=== PATIENT | male | born 1965 | race American Indian/Alaskan Native ===

== ENCOUNTER 2017-09-20 14:13 | Day surgery (SDC) | payer OTHER, MEDICAID ==
[~2017-09-20 14:13] MED LIST: Bupivacaine HCl 0.25% PF (10 ml) Inj ONE; Iohexol 240 (50 ml) ONE; Lactated Ringer's 1,000 ML IV ONE; Lidocaine 1% MPF (30 ml) Inj ONE; Lidocaine Hydrochloride 10 ML INJ ONE
[2017-09-20] MEDS: Bupivacaine HCl 0.25% PF (10 ml) Inj ONE ×2 (14:20→15:41)
[2017-09-20] MEDS ORDERED: Lidocaine 1% Inj (20ml) INFIL ONE (15:08)
[2017-09-20] MEDS ORDERED: Propofol 10 mg/ml Inj (20 ML) ONE (15:09)
[2017-09-20] MEDS ORDERED: Iohexol 240 (50 ml) IVP ONE (15:09)
[2017-09-20] MEDS ORDERED: Sodium Chloride 0.9% 500 ML IV ONE (15:09)
[2017-09-20] MEDS ORDERED: Bupivacaine HCl 0.25% PF (10 ml) Inj EPI ONE (15:09)
[2017-09-20] MEDS ORDERED: Midazolam 2 MG/2 ML VIAL ONE (15:15)
[2017-09-20] MEDS: Iohexol 240 (50 ml) ONE ×2 (15:19→15:41)
[2017-09-20 16:31] VITALS: BP 138/80; PULSE 82; RESP 18; TEMP 97; O2SAT 100
--- NOTE | 2017-09-21 03:56 | OP ---
DATE: PROCEDURE DATE: 09/20/2017 SURGEON: MARIVEL PIEDRA MD OPERATIVE PROCEDURE: Lumbosacral epidural steroid injection, transforaminal approach with fluoroscopic guidance. INJECTATE: A total of 5.0 cc; consisting of 2.5 cc of Kenalog (40 mg/cc), with the remainder of saline. APPROACH: Transforaminal approach. FINDINGS: Flow of contrast was excellent along the left L5 and S1 nerve roots and into the epidural space. PROCEDURE: The patient was prepped and draped in a sterile fashion in the prone position after informed consent was signed and all the patient's questions were answered including the risks, benefits, alternative treatment options, and prognosis. The risks include but are not limited to infection, allergic reaction, increased pain, lack of therapeutic benefit, steroid reaction, nerve damage, paralysis, stroke, epidural hematoma, syncope, headache, respiratory or cardiac arrest, and scar formation. The C-arm was positioned so that an oblique view of the foramen as noted above was visualized. The soft tissues overlying this structure were infiltrated with 2-3 cc of 1% lidocaine without epinephrine. A 22-gauge spinal needle was inserted toward the target using a "trajectory" view along the fluoroscope beam. Under AP and lateral visualization, the needle was advanced so it did not puncture dura. Biplanar projections were used to confirm position. Aspiration was confirmed to be negative for CSF and/or blood. A 1 to 2 cc volume of Omnipaque-300 was injected and flow of contrast was noted at each level. Radiographs were obtained for documentation purposes. After attaining flow of contrast documented above, a 1 cc test dose of 1% lidocaine was injected into each respective transforaminal space. The patient was observed for 90 seconds post injection. After no sensory deficits were reported, and normal lower extremity motor function was noted, the above injectate was administered so that equal amounts of the injectate were placed at each foramen into the transforaminal epidural space. The patient tolerated the procedure well and was discharged after an appropriate period of observation. If there are any complications, the patient was instructed to call us. The patient is to follow up with the requesting physician within one to two weeks. Marivel Piedra MD
--- NOTE | 2017-09-21 09:53 | RAD ---
PROCEDURE: Intraoperative Fluoroscopy. HISTORY: LUMBAR RADICULOPATHY FINDINGS: Fluoroscopic assistance was provided for L5-S1 epidural spinal injection. Please refer to the operative report from MARIVEL Denise, , MD KRISTIN.
== END 2017-09-20 17:29 | disposition home or self-care (01) ==
LOC: C.SDS 14:13
PROVIDERS: ATTEND Neuromusculoskeletal Medicine, Sports Medicine
DX: M51.27 Other intervertebral disc displacement, lumbosacral region (principal); M54.17 Radiculopathy, lumbosacral region
CPT/HCPCS: 64483; J1100; J2001; J2250; J2704; Q9966

== ENCOUNTER 2017-10-28 13:30 | Inpatient (IN) | payer MEDICAID, OTHER ==
[2017-10-28 16:37] LABS: BASO # 0.1 K/uL (0.0-0.2); BASO % 1.4 % (0.0-2.0); EOS # 0.1 K/uL (0.0-0.7); EOS % 1.9 % (0.0-4.0); HEMOGLOBIN 10.9 g/dL (12.0-18.0); LYMPH # 2.2 K/uL (1.0-4.3); LYMPH % 33.2 % (20.0-40.0); MEAN CORPUSCULAR HEMOGLOBIN 27.2 pg (27.0-31.0); MEAN PLATELET VOLUME 7.4 fL (7.2-11.7); MONO # 0.8 K/uL (0.0-0.8); MONO % 12.4 % (0.0-10.0); NEUT # 3.4 K/uL (1.8-7.0); NEUT % 51.1 % (50.0-75.0); NRBC % 0.1 % (0.0-2.0); RBC 3.99 Mil/uL (4.40-5.90); RED CELL DISTRIBUTION WIDTH 15.8 % (11.5-14.5); WHITE BLOOD COUNT 6.7 K/uL (4.8-10.8)
--- NOTE | 2017-10-28 16:45 | RAD ---
PROCEDURE: CHEST RADIOGRAPH, 1 VIEW HISTORY: SOB COMPARISON: None available. FINDINGS: LUNGS: Evaluation of the left lung base limited due to the degree of cardiomegaly. PLEURA: No pneumothorax. Small bilateral pleural effusions cannot be excluded CARDIOVASCULAR: Marked cardiomegaly. Central pulmonary venous congestion OSSEOUS STRUCTURES: No significant abnormalities. VISUALIZED UPPER ABDOMEN: Normal. OTHER FINDINGS: None. IMPRESSION: Cardiomegaly with mild pulmonary venous congestion. . Small bilateral pleural effusions not excluded
[2017-10-28 16:52] LABS: ALBUMIN 3.3 g/dL (3.5-5.0); ALT/SGPT 46 U/L (21-72); AST/SGOT 39 U/L (17-59); BLOOD UREA NITROGEN 19 mg/dL (9-20); CALCIUM 8.7 mg/dl (8.6-10.4); GFR AFRICAN-AMERICAN > 60; GFR NON-AFRICAN AMERICAN > 60
[2017-10-28 17:02] LABS: B-TYPE NATRIURETIC PEPTIDE 1530 pg/mL (0-900)
--- NOTE | 2017-10-28 18:05 | C.PDOC ---
History Of Present Illness 52 y/o male presents to ED with complaints of increased leg swelling for 1 week. Patient reports he is non compliant with medications and admits to shortness of breath on exertion. Patient denies fever, cough, chest pain or any other complaints at this time. Chief Complaint (Nursing): Lower Extremity Problem/Injury History Per: Patient History/Exam Limitations: no limitations Onset/Duration Of Symptoms: Days Current Symptoms Are (Timing): Still Present Past Medical History Reviewed: Historical Data, Nursing Documentation, Vital Signs Vital Signs: Last Vital Signs Temp 98.2 F 10/28/17 18:29 Pulse 88 10/28/17 18:29 Resp 20 10/28/17 18:29 BP 138/82 10/28/17 18:29 Pulse Ox 100 10/28/17 18:29 - Medical History PMH: Back Problems, HTN Surgical History: No Surg Hx Family History: States: No Known Family Hx - Social History Hx Alcohol Use: No Hx Substance Use: No - Immunization History Hx Tetanus Toxoid Vaccination: No Hx Influenza Vaccination: No Hx Pneumococcal Vaccination: No Review Of Systems Constitutional: Negative for: Fever, Chills Cardiovascular: Negative for: Chest Pain Respiratory: Positive for: SOB with Excertion. Negative for: Cough Gastrointestinal: Negative for: Nausea, Vomiting Musculoskeletal: Positive for: Leg Pain (swelling) Physical Exam - Physical Exam Appears: Non-toxic, No Acute Distress Skin: Warm, Dry, No Rash Head: Atraumatic, Normacephalic Oral Mucosa: Moist Neck: Normal ROM, Supple Cardiovascular: Other (Displaced PMI ) Respiratory: Rales (at bases bilaterally), No Rhonchi, No Wheezing Gastrointestinal/Abdominal: Bowel Sounds, Soft, No Tenderness, No Guarding, No Rebound Extremity: No Deformity, Other (pitting edema bilaterally up to knees) Pulses: Left Dorsalis Pedis: Normal, Right Dorsalis Pedis: Normal Neurological/Psych: Oriented x3, Normal Speech, Normal Cognition, Normal Motor, Normal Sensation ED Course And Treatment - Laboratory Results Result Diagrams: 10/28/17 16:29 10/28/17 16:29 ECG: Interpreted By Me, Viewed By Me ECG Rhythm: Sinus Rhythm Rate From EC (BPM) O2 Sat by Pulse Oximetry: 98 (RA) Pulse Ox Interpretation: Normal Progress Note: Spoke to Dr. Castro instructed admission to Telemetry Disposition - Disposition Disposition Time: 17:00 Condition: FAIR - Clinical Impression Clinical Impression: CHF exacerbation - Scribe Statement The provider has reviewed the documentation as recorded by the Scribanurag Porter All medical record entries made by the Mirelaibe were at my direction and personally dictated by me. I have reviewed the chart and agree that the record accurately reflects my personal performance of the history, physical exam, medical decision making, and the department course for this patient. I have also personally directed, reviewed, and agree with the discharge instructions and disposition.
[2017-10-28] MEDS ORDERED: Potassium Chloride 20 mEq ER Tab PO ONE (18:25)
[2017-10-28] MEDS: Potassium Chloride 20 mEq ER Tab PO SCH (18:32)
[2017-10-28] MEDS: Metoprolol Succinate 100 mg XL Tab PO SCH (22:09)
[2017-10-29 09:22] LABS: BASO # 0.1 K/uL (0.0-0.2); BASO % 1.2 % (0.0-2.0); EOS # 0.1 K/uL (0.0-0.7); EOS % 1.4 % (0.0-4.0); HEMOGLOBIN 10.5 g/dL (12.0-18.0); LYMPH # 1.5 K/uL (1.0-4.3); LYMPH % 27.1 % (20.0-40.0); MEAN CELL VOLUME 85.5 fL (80.0-94.0); MEAN CORPUSCULAR HEMOGLOBIN 27.6 pg (27.0-31.0); MEAN CORPUSCULAR HGB CONC 32.3 g/dL (33.0-37.0); MEAN PLATELET VOLUME 7.9 fL (7.2-11.7); MONO # 0.6 K/uL (0.0-0.8); NEUT # 3.4 K/uL (1.8-7.0); NEUT % 60.3 % (50.0-75.0); NRBC % 0.1 % (0.0-2.0); RBC 3.8 Mil/uL (4.40-5.90); RED CELL DISTRIBUTION WIDTH 15.6 % (11.5-14.5); WHITE BLOOD COUNT 5.7 K/uL (4.8-10.8)
[2017-10-29 09:40] LABS: ALB/GLOB RATIO 1.1 (1.0-2.1); ALBUMIN 3.2 g/dL (3.5-5.0); ALT/SGPT 46 U/L (21-72); AST/SGOT 48 U/L (17-59); BLOOD UREA NITROGEN 17 mg/dL (9-20); CALCIUM 8.5 mg/dl (8.6-10.4); GFR AFRICAN-AMERICAN > 60; GFR NON-AFRICAN AMERICAN > 60
[2017-10-29] MEDS: GlipiZIDE 10 mg SR Tab PO SCH ×2 (10:40→17:17)
[2017-10-29] MEDS: Enoxaparin 40 mg Syringe SC SCH (10:40)
[2017-10-29] MEDS: Potassium Chloride 20 mEq ER Tab PO SCH (10:40)
[2017-10-29] MEDS: Metoprolol Succinate 100 mg XL Tab PO SCH (10:40)
[2017-10-29] MEDS: Aspirin 325 mg EC Tablets PO SCH (10:40)
--- NOTE | 2017-10-29 11:43 | CP.PCM.CON ---
<Jono Correa - Last Filed: 10/29/17 19:08> History of Present Illness - History of Present Illness History of Present Illness: PGY [address] Beatty's Cardiology service Consult: CHF exacerbation HPI Patient is a 52 year old male, with PMHx of HTN, CAD (with stent placement, CHF , T2DM, Lumbar radiculopathy, Gout, HLD presenting for increased leg swelling for approximately last 10 days. Admits sleeping either in recliner or with 2+ pillows. Denies dyspnea with exertion or chest pain. Patient denies fever, cough , chest pain or any other complaints at this time. PMHx: HTN, CAD (with stent placement - unknown type), CHF, T2DM, Lumbar radiculopathy, Gout, HLD PSHx: Stent placement (approx 3 yrs ago) SHx: Tobacco: 1/2 ppd x ~15 yrs; denies etoh or drugs Allergies: NKA Review of Systems - Constitutional Constitutional: absent: Chills, Fever - EENT Eyes: absent: Change in Vision - Cardiovascular Cardiovascular: Edema, Pedal Edema. absent: Chest Pain - Respiratory Respiratory: absent: Cough, Dyspnea, Dyspnea on Exertion - Gastrointestinal Gastrointestinal: absent: Abdominal Pain, Vomiting - Musculoskeletal Musculoskeletal: Numbness, Tingling (hx radiculopathy) - Neurological Neurological: Tingling - Endocrine Endocrine: absent: Palpitations Past Patient History - Past Medical History & Family History Past Medical History?: Yes - Past Social History Smoking Status: Heavy Smoker > 10 Cigarettes Daily - CARDIAC Hx Cardiac Disorders: Yes Hx Hypertension: Yes - PULMONARY Hx Respiratory Disorders: No - NEUROLOGICAL Hx Neurological Disorder: No - HEENT Hx HEENT Problems: No - RENAL Hx Chronic Kidney Disease: No - ENDOCRINE/METABOLIC Hx Endocrine Disorders: Yes Hx Diabetes Mellitus Type 2: Yes - HEMATOLOGICAL/ONCOLOGICAL Hx Blood Disorders: No - INTEGUMENTARY Hx Dermatological Problems: No - MUSCULOSKELETAL/RHEUMATOLOGICAL Hx Musculoskeletal Disorders: No Hx Falls: No - GASTROINTESTINAL Hx Gastrointestinal Disorders: No - GENITOURINARY/GYNECOLOGICAL Hx Genitourinary Disorders: No - PSYCHIATRIC Hx Psychophysiologic Disorder: No Hx Substance Use: No - SURGICAL HISTORY Hx Surgeries: No - ANESTHESIA Hx Anesthesia: No Meds Allergies/Adverse Reactions: Allergies Allergy/AdvReac Type Severity Reaction Status Date / Time No Known Allergies Allergy Verified 10/28/17 14:01 - Medications Medications: Current Medications Allopurinol (Zyloprim) 100 mg PO BID [facility] Last Admin: 10/29/17 10:40 Dose: 100 mg Amlodipine Besylate (Norvasc) 10 mg PO DAILY [facility] Last Admin: 10/29/17 10:40 Dose: 10 mg Aspirin (Ecotrin) 325 mg PO DAILY [facility] Last Admin: 10/29/17 10:40 Dose: 325 mg Clopidogrel Bisulfate (Plavix) 75 mg PO DAILY [facility] Last Admin: 10/29/17 10:40 Dose: 75 mg Enoxaparin Sodium (Lovenox) 40 mg SC DAILY [facility] Last Admin: 10/29/17 10:40 Dose: 40 mg Furosemide (Lasix) 40 mg IVP DAILY [facility] Last Admin: 10/29/17 10:41 Dose: 40 mg Glipizide (Glucotrol Xl) 10 mg PO BID [facility] Last Admin: 10/29/17 10:40 Dose: 10 mg Ibuprofen (Motrin Tab) 600 mg PO Q8H PRN PRN Reason: Pain, moderate (4-7) Losartan Potassium (Cozaar) 100 mg PO DAILY [facility] Last Admin: 10/29/17 10:40 Dose: 100 mg Metformin HCl (Glucophage) 1,000 mg PO BID [facility] Last Admin: 10/29/17 10:40 Dose: 1,000 mg Metoprolol Succinate (Toprol Xl) 100 mg PO DAILY [facility] Last Admin: 10/29/17 10:40 Dose: 100 mg Potassium Chloride (K-Dur 20 Meq Er Tab) 20 meq PO DAILY [facility] Last Admin: 10/29/17 10:40 Dose: 20 meq Rosuvastatin Calcium (Crestor) 20 mg PO [facility] Physical Exam - Additional Findings Additional findings: - Constitutional Appears: Non-toxic, No Acute Distress - Head Exam Head Exam: ATRAUMATIC - ENT Exam ENT Exam: Mucous Membranes Moist - Respiratory Exam Respiratory Exam: Wheezes (worse on expiration). absent: Accessory Muscle Use, Rales, Rhonchi, Respiratory Distress - Cardiovascular Exam Cardiovascular Exam: REGULAR RHYTHM, +S1, +S2. absent: Gallop, Rubs, Murmur - GI/Abdominal Exam GI & Abdominal Exam: Soft, Normal Bowel Sounds. absent: Distended, Firm, Guarding, Rigid, Tenderness, Organomegaly - Extremities Exam Extremities Exam: + Pedal Edema (worse on right), mild Tenderness - Neurological Exam Neurological Exam: Alert, Awake, Oriented x3 - Psychiatric Exam Psychiatric exam: Normal Affect, Normal Mood - Skin Skin Exam: Dry, Intact, Normal Color, Warm Results - Vital Signs Recent Vital Signs: Last Vital Signs Temp 98.4 F 10/29/17 07:15 Pulse 84 10/29/17 07:15 Resp 20 10/29/17 07:15 BP 125/84 10/29/17 10:41 Pulse Ox 96 10/29/17 07:15 - Labs Result Diagrams: 10/29/17 09:15 10/29/17 09:15 Labs: Laboratory Results - last 24 hr 10/28/17 10/28/17 10/28/17 16:29 16:29 22:05 WBC 6.7 RBC 3.99 L Hgb 10.9 L Hct 34.0 L MCV 85.0 MCH 27.2 MCHC 32.0 L RDW 15.8 H Plt Count 252 MPV 7.4 Neut % (Auto) 51.1 Lymph % (Auto) 33.2 Gregory % (Auto) 12.4 H Eos % (Auto) 1.9 Baso % (Auto) 1.4 Neut # (Auto) 3.4 Lymph # (Auto) 2.2 Gregory # (Auto) 0.8 Eos # (Auto) 0.1 Baso # (Auto) 0.1 Sodium 143 Potassium 3.5 L Chloride 103 Carbon Dioxide 27 Anion Gap 17 BUN 19 Creatinine 0.8 Est GFR ( Amer) > 60 Est GFR (Non-Af Amer) > 60 POC Glucose (mg/dL) 186 H Random Glucose 105 Calcium 8.7 Total Bilirubin 0.4 AST 39 ALT 46 Alkaline Phosphatase 237 H Troponin I 0.0430 NT-Pro-B Natriuret Pep 1530 H Total Protein 6.5 Albumin 3.3 L Globulin 3.2 Albumin/Globulin Ratio 1.0 10/29/17 10/29/17 10/29/17 06:19 09:15 09:15 WBC 5.7 RBC 3.80 L Hgb 10.5 L Hct 32.4 L MCV 85.5 MCH 27.6 MCHC 32.3 L RDW 15.6 H Plt Count 236 MPV 7.9 Neut % (Auto) 60.3 Lymph % (Auto) 27.1 Gregory % (Auto) 10.0 Eos % (Auto) 1.4 Baso % (Auto) 1.2 Neut # (Auto) 3.4 Lymph # (Auto) 1.5 Gregory # (Auto) 0.6 Eos # (Auto) 0.1 Baso # (Auto) 0.1 Sodium 141 Potassium 3.6 Chloride 103 Carbon Dioxide 26 Anion Gap 15 BUN 17 Creatinine 0.8 Est GFR ( Amer) > 60 Est GFR (Non-Af Amer) > 60 POC Glucose (mg/dL) 140 H Random Glucose 233 H Calcium 8.5 L Total Bilirubin 0.4 AST 48 ALT 46 Alkaline Phosphatase 229 H Troponin I 0.0480 NT-Pro-B Natriuret Pep Total Protein 6.2 L Albumin 3.2 L Globulin 3.0 Albumin/Globulin Ratio 1.1 10/29/17 11:10 WBC RBC Hgb Hct MCV MCH MCHC RDW Plt Count MPV Neut % (Auto) Lymph % (Auto) Gregory % (Auto) Eos % (Auto) Baso % (Auto) Neut # (Auto) Lymph # (Auto) Gregory # (Auto) Eos # (Auto) Baso # (Auto) Sodium Potassium Chloride Carbon Dioxide Anion Gap BUN Creatinine Est GFR ( Amer) Est GFR (Non-Af Amer) POC Glucose (mg/dL) 153 H Random Glucose Calcium Total Bilirubin AST ALT Alkaline Phosphatase Troponin I NT-Pro-B Natriuret Pep Total Protein Albumin Globulin Albumin/Globulin Ratio Assessment & Plan - Assessment and Plan (Free Text) Plan: CHF exacerbation Admitted to tele CXR (10/28/17): Cardiomegaly. Mild venous congestion. Small b/l pleural effusion. (see report) Lasix 40mg IV Daily Toprol 100mg Losartan 100mg PO Daily Troponins negative x 2 f/u ECHO CAD Stent placement ASA 325mg PO Daily Plavix 75mg PO daily Toprol 100mg PO Daily Crestor 20mg PO Daily HTN well-controlled Norvasc 10mg PO Daily Toprol 100mg PO Daily Lasix 40mg IV Daily Disposition: Awaiting ECHO results. Continue diuresis. D/w Dr. Beatty <Tito Beatty - Last Filed: 10/29/17 22:03> Meds - Medications Medications: Current Medications Allopurinol (Zyloprim) 100 mg PO BID [facility] Last Admin: 10/29/17 17:18 Dose: 100 mg Amlodipine Besylate (Norvasc) 10 mg PO DAILY [facility] Last Admin: 10/29/17 10:40 Dose: 10 mg Aspirin (Ecotrin) 325 mg PO DAILY [facility] Last Admin: 10/29/17 10:40 Dose: 325 mg Clopidogrel Bisulfate (Plavix) 75 mg PO DAILY [facility] Last Admin: 10/29/17 10:40 Dose: 75 mg Enoxaparin Sodium (Lovenox) 40 mg SC DAILY [facility] Last Admin: 10/29/17 10:40 Dose: 40 mg Furosemide (Lasix) 40 mg IVP DAILY [facility] Last Admin: 10/29/17 10:41 Dose: 40 mg Glipizide (Glucotrol Xl) 10 mg PO BID [facility] Last Admin: 10/29/17 17:17 Dose: 10 mg Ibuprofen (Motrin Tab) 600 mg PO Q8H PRN PRN Reason: Pain, moderate (4-7) Last Admin: 10/29/17 11:50 Dose: 600 mg Losartan Potassium (Cozaar) 100 mg PO DAILY [facility] Last Admin: 10/29/17 10:40 Dose: 100 mg Metformin HCl (Glucophage) 1,000 mg PO BID [facility] Last Admin: 10/29/17 17:17 Dose: 1,000 mg Metoprolol Succinate (Toprol Xl) 100 mg PO DAILY [facility] Last Admin: 10/29/17 10:40 Dose: 100 mg Potassium Chloride (K-Dur 20 Meq Er Tab) 20 meq PO DAILY [facility] Last Admin: 10/29/17 10:40 Dose: 20 meq Rosuvastatin Calcium (Crestor) 20 mg PO HS [facility] Last Admin: 10/29/17 21:40 Dose: 20 mg Results - Vital Signs Recent Vital Signs: Last Vital Signs Temp 97.1 F L 10/29/17 15:00 Pulse 98 H 10/29/17 15:45 Resp 20 10/29/17 15:00 BP 100/65 10/29/17 15:00 Pulse Ox 97 10/29/17 15:00 - Labs Result Diagrams: 10/29/17 09:15 10/29/17 09:15 Labs: Laboratory Results - last 24 hr 10/28/17 10/29/17 10/29/17 22:05 06:19 09:15 WBC 5.7 RBC 3.80 L Hgb 10.5 L Hct 32.4 L MCV 85.5 MCH 27.6 MCHC 32.3 L RDW 15.6 H Plt Count 236 MPV 7.9 Neut % (Auto) 60.3 Lymph % (Auto) 27.1 Gregory % (Auto) 10.0 Eos % (Auto) 1.4 Baso % (Auto) 1.2 Neut # (Auto) 3.4 Lymph # (Auto) 1.5 Gregory # (Auto) 0.6 Eos # (Auto) 0.1 Baso # (Auto) 0.1 Sodium Potassium Chloride Carbon Dioxide Anion Gap BUN Creatinine Est GFR ( Amer) Est GFR (Non-Af Amer) POC Glucose (mg/dL) 186 H 140 H Random Glucose Calcium Total Bilirubin AST ALT Alkaline Phosphatase Troponin I Total Protein Albumin Globulin Albumin/Globulin Ratio 10/29/17 10/29/17 10/29/17 09:15 11:10 16:33 WBC RBC Hgb Hct MCV MCH MCHC RDW Plt Count MPV Neut % (Auto) Lymph % (Auto) Gregory % (Auto) Eos % (Auto) Baso % (Auto) Neut # (Auto) Lymph # (Auto) Gregory # (Auto) Eos # (Auto) Baso # (Auto) Sodium 141 Potassium 3.6 Chloride 103 Carbon Dioxide 26 Anion Gap 15 BUN 17 Creatinine 0.8 Est GFR ( Amer) > 60 Est GFR (Non-Af Amer) > 60 POC Glucose (mg/dL) 153 H 141 H Random Glucose 233 H Calcium 8.5 L Total Bilirubin 0.4 AST 48 ALT 46 Alkaline Phosphatase 229 H Troponin I 0.0480 Total Protein 6.2 L Albumin 3.2 L Globulin 3.0 Albumin/Globulin Ratio 1.1 Assessment & Plan - Assessment and Plan (Free Text) Plan: Patient seen and evaluated personally by ok Plan of care d/w the medical insurance verifier and as documented
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
--- NOTE | 2017-10-29 15:03 | VASCLAB ---
PROCEDURE: Lower Extremity Venous Duplex Exam. HISTORY: swelling PRIORS: None. TECHNIQUE: Bilateral common femoral, femoral, popliteal and posterior tibial, peroneal and great saphenous veins were evaluated. Flow was assessed with color Doppler, compressibility, assessment of phasic flow and augmentation response. Report prepared by PIERRE Gifford, RVT FINDINGS: RIGHT: 1. Common Femoral Vein: 1.1. Compressibility - Fully compressible: Thrombus - None : Flow - Phasic: Augmentation -Normal: Reflux - None. 2. Femoral Vein: 2.1. Compressibility - Fully compressible: Thrombus - None : Flow - Phasic: Augmentation -Normal: Reflux - None. 3. Popliteal Vein: 3.1. Compressibility - Fully compressible: Thrombus - None : Flow - Phasic: Augmentation -Normal: Reflux - None. 4. Posterior Tibial Vein: 4.1. Compressibility - Fully compressible: Thrombus - None: Flow - Phasic: Augmentation -Normal: Reflux - None. 5. Peroneal Vein: 5.1. Compressibility - : Thrombus - : Flow - : Augmentation -: Reflux - . 6. Great Saphenous Vein: 6.1. Compressibility - Fully compressible: Thrombus - None: Flow - Phasic: Augmentation - Normal: Reflux - None. LEFT: 1. Common Femoral Vein: 1.1. Compressibility - Fully compressible: Thrombus - None: Flow - Phasic: Augmentation -Normal: Reflux - None. 2. Femoral Vein: 2.1. Compressibility - Fully compressible: Thrombus - None: Flow - Phasic: Augmentation -Normal: Reflux - None. 3. Popliteal Vein: 3.1. Compressibility - Fully compressible: Thrombus - None : Flow - Phasic: Augmentation -Normal: Reflux - None. 4. Posterior Tibial Vein: 4.1. Compressibility - Fully compressible: Thrombus - None: Flow - Phasic: Augmentation -Normal: Reflux - None. 5. Peroneal Vein: 5.1. Compressibility - : Thrombus - : Flow - : Augmentation -: Reflux - . 6. Great Saphenous Vein: 6.1. Compressibility - Fully compressible: Thrombus - None: Flow - Phasic: Augmentation - Normal: Reflux - None. OTHER FINDINGS: Due to swelling in the calves, bilateral peroneal and posterior tibial vein were not visualized. IMPRESSION: Extensive bilateral subcutaneous edema. Right: No evidence of deep or superficial vein thrombosis of the right lower extremity. Normal valve function noted of the right side. Left: No evidence of deep or superficial vein thrombosis of the left lower extremity. Normal valve function noted of the left side.
--- NOTE | 2017-10-29 18:41 | CARD ---
APPROVED REPORT EXAM: Two-dimensional and M-mode echocardiogram with Doppler and color Doppler. Other Information Quality : PoorRhythm : NSR INDICATION Dyspnea Congestive Heart Failure TDS,OBESE PT RISK FACTORS Hypertension Obesity M-Mode DIMENSIONS RVDd4.20 (2.1-3.2cm)Left Atrium (MM)5.63 (2.5-4.0cm) IVSd1.48 (0.7-1.1cm)Aortic Root3.58 (2.2-3.7cm) LVDd5.87 (4.0-5.6cm)Aortic Cusp Exc.2.39 (1.5-2.0cm) PWd1.29 (0.7-1.1cm)FS (%) 19 % LVDs4.77 (2.0-3.8cm)LVEF (%)38 (>50%) Mitral Valve MV E Eryfofrc626.7cm/sMV A Stznibcm81.3cm/sE/A ratio2.0 TDI E/Lateral E'0.0E/Medial E'0.0 Tricuspid Valve TR Peak [id number]/sTR Peak [id number] LEFT VENTRICLE The Left Ventricle is moderately dilated. There is moderate left ventricular hypertrophy. Left ventricle systolic function is moderately impaired. The Ejection Fraction is 35-40%. Diffuse hypokinesis. Transmitral Doppler flow pattern is Grade II-pseudonormal filling dynamics. RIGHT VENTRICLE The right ventricle is moderately dilated. Systolic function is mildly to moderately reduced. ATRIA The left atrium is moderately dilated. The right atrium is moderately dilated. AORTIC VALVE The aortic valve is normal in structure. No aortic regurgitation is present. MITRAL VALVE The mitral valve is normal in structure. Mitral regurgitation is mild to moderate. TRICUSPID VALVE The tricuspid valve is normal in structure. There is mild tricuspid regurgitation. Right ventricular systolic pressure is estimated at 30-40 mmHg. There is mild pulmonary hypertension. PULMONIC VALVE The pulmonary valve is normal in structure. There is no pulmonic valvular regurgitation. GREAT VESSELS The aortic root is normal in size. Dilated IVC with poor inspiration collapse is consistent with elevated right atrial pressure. PERICARDIAL EFFUSION There is a trace pericardial effusion. <Conclusion> Dlilated cardiac chambers There is moderate left ventricular hypertrophy. Left ventricle systolic function is moderately impaired. The Ejection Fraction is 35-40%. Transmitral Doppler flow pattern is Grade II-pseudonormal filling dynamics. The right ventricle is moderately dilated with mildly to moderately reduced systolic function. Mild to moderate mitral regurgitation. There is mild tricuspid regurgitation. Right ventricular systolic pressure is estimated at 30-40 mmHg compatible with mild pulmonary hypertension. There is a trace pericardial effusion.
--- NOTE | 2017-10-29 21:13 | CARD ---
APPROVED REPORT EKG Measurement Heart [id number] <Conclusion> Sinus tachycardia Possible Left atrial enlargement Left axis deviation Right bundle branch block Abnormal ECG
[2017-10-30 06:32] LABS: BASO % 0.8 % (0.0-2.0); EOS # 0.1 K/uL (0.0-0.7); EOS % 1.9 % (0.0-4.0); HEMOGLOBIN 10.3 g/dL (12.0-18.0); LYMPH # 1.5 K/uL (1.0-4.3); LYMPH % 24.1 % (20.0-40.0); MEAN CELL VOLUME 85.1 fL (80.0-94.0); MEAN CORPUSCULAR HEMOGLOBIN 27.3 pg (27.0-31.0); MEAN CORPUSCULAR HGB CONC 32.1 g/dL (33.0-37.0); MONO # 0.6 K/uL (0.0-0.8); MONO % 10.5 % (0.0-10.0); NEUT # 3.8 K/uL (1.8-7.0); NEUT % 62.7 % (50.0-75.0); NRBC % 0.2 % (0.0-2.0); RBC 3.77 Mil/uL (4.40-5.90); RED CELL DISTRIBUTION WIDTH 15.7 % (11.5-14.5); WHITE BLOOD COUNT 6.1 K/uL (4.8-10.8)
[2017-10-30 06:40] LABS: ALBUMIN 3.2 g/dL (3.5-5.0); ALT/SGPT 47 U/L (21-72); AST/SGOT 46 U/L (17-59); BLOOD UREA NITROGEN 18 mg/dL (9-20); CALCIUM 8.2 mg/dl (8.6-10.4); GFR AFRICAN-AMERICAN > 60; GFR NON-AFRICAN AMERICAN > 60
[2017-10-30] MEDS ORDERED: Potassium Chloride 20 mEq ER Tab PO ONE (10:45)
[2017-10-30] MEDS: Metoprolol Succinate 100 mg XL Tab PO SCH (11:16)
[2017-10-30] MEDS: Enoxaparin 40 mg Syringe SC SCH (11:17)
[2017-10-30] MEDS: GlipiZIDE 10 mg SR Tab PO SCH ×2 (11:17→17:49)
[2017-10-30] MEDS: Potassium Chloride 20 mEq ER Tab PO SCH (11:17)
[2017-10-30] MEDS: Aspirin 325 mg EC Tablets PO SCH (11:17)
--- NOTE | 2017-10-31 06:15 | CP.PCM.PN ---
Subjective - Date & Time of Evaluation Date of Evaluation: 10/30/17 Time of Evaluation: 18:30 - Subjective Subjective: Patient seen and evaluated Still has dyspnea Acute on Chronic systolic CHF (EF 35-40%) CAD s/p stent 3 years ago HTN DVT negative Increase diuresis to 40mg IV bid Will follow lytes Optimize CHF medications Objective - Vital Signs/Intake and Output Vital Signs (last 24 hours): Temp Pulse Resp BP Pulse Ox 97.9 F 97 H 20 136/88 95 10/30/17 23:10 10/30/17 23:10 10/30/17 23:10 10/30/17 23:10 10/30/17 23:10 Intake and Output: 10/30/17 10/31/17 18:59 06:59 Intake Total 250 Balance 250 - Medications Medications: Current Medications Allopurinol (Zyloprim) 100 mg PO BID [facility] Last Admin: 10/30/17 17:49 Dose: 100 mg Amlodipine Besylate (Norvasc) 10 mg PO DAILY [facility] Last Admin: 10/30/17 11:17 Dose: 10 mg Aspirin (Ecotrin) 325 mg PO DAILY [facility] Last Admin: 10/30/17 11:17 Dose: 325 mg Clopidogrel Bisulfate (Plavix) 75 mg PO DAILY [facility] Last Admin: 10/30/17 11:16 Dose: 75 mg Enoxaparin Sodium (Lovenox) 40 mg SC DAILY [facility] Last Admin: 10/30/17 11:17 Dose: 40 mg Furosemide (Lasix) 40 mg IVP DAILY [facility] Last Admin: 10/30/17 11:18 Dose: 40 mg Glipizide (Glucotrol Xl) 10 mg PO BID [facility] Last Admin: 10/30/17 17:49 Dose: 10 mg Ibuprofen (Motrin Tab) 600 mg PO Q8H PRN PRN Reason: Pain, moderate (4-7) Last Admin: 10/30/17 16:12 Dose: 600 mg Losartan Potassium (Cozaar) 100 mg PO DAILY [facility] Last Admin: 10/30/17 11:18 Dose: 100 mg Metformin HCl (Glucophage) 1,000 mg PO BID [facility] Last Admin: 10/30/17 17:49 Dose: 1,000 mg Metoprolol Succinate (Toprol Xl) 100 mg PO DAILY [facility] Last Admin: 10/30/17 11:16 Dose: 100 mg Potassium Chloride (K-Dur 20 Meq Er Tab) 20 meq PO DAILY [facility] Last Admin: 10/30/17 11:17 Dose: 20 meq Rosuvastatin Calcium (Crestor) 20 mg PO HS [facility] Last Admin: 10/30/17 21:57 Dose: 20 mg - Labs Labs: 10/30/17 06:15 10/30/17 06:15
[2017-10-31] MEDS: GlipiZIDE 10 mg SR Tab PO SCH ×2 (10:13→18:13)
[2017-10-31] MEDS: Potassium Chloride 20 mEq ER Tab PO SCH (10:13)
[2017-10-31] MEDS: Aspirin 325 mg EC Tablets PO SCH (10:13)
[2017-10-31] MEDS: Metoprolol Succinate 100 mg XL Tab PO SCH (10:13)
[2017-10-31] MEDS: Enoxaparin 40 mg Syringe SC SCH (10:13)
--- NOTE | 2017-10-31 10:31 | CARD ---
APPROVED REPORT EKG Measurement Heart [id number] <Conclusion> Normal sinus rhythm Left axis deviation Right bundle branch block Abnormal ECG
--- NOTE | 2017-10-31 22:34 | CP.PCM.PN ---
Subjective - Date & Time of Evaluation Date of Evaluation: 10/31/17 Time of Evaluation: 14:05 - Subjective Subjective: Patient with no additional cardiac events Improvement in dyspnea Review of Systems - Constitutional Constitutional: absent: Chills, Fever - EENT Eyes: absent: Change in Vision - Cardiovascular Cardiovascular: Edema, Pedal Edema. absent: Chest Pain - Respiratory Respiratory: absent: Cough, Dyspnea, Dyspnea on Exertion - Gastrointestinal Gastrointestinal: absent: Abdominal Pain, Vomiting - Musculoskeletal Musculoskeletal: Numbness, Tingling (hx radiculopathy) - Neurological Neurological: Tingling - Endocrine Endocrine: absent: Palpitations Physical Exam - Additional Findings Additional findings: - Constitutional Appears: Non-toxic, No Acute Distress - Head Exam Head Exam: ATRAUMATIC - ENT Exam ENT Exam: Mucous Membranes Moist - Respiratory Exam Respiratory Exam: Wheezes (worse on expiration). absent: Accessory Muscle Use, Rales, Rhonchi, Respiratory Distress - Cardiovascular Exam Cardiovascular Exam: REGULAR RHYTHM, +S1, +S2. absent: Gallop, Rubs, Murmur - GI/Abdominal Exam GI & Abdominal Exam: Soft, Normal Bowel Sounds. absent: Distended, Firm, Guarding, Rigid, Tenderness, Organomegaly - Extremities Exam Extremities Exam: + Pedal Edema (worse on right), mild Tenderness - Neurological Exam Neurological Exam: Alert, Awake, Oriented x3 - Psychiatric Exam Psychiatric exam: Normal Affect, Normal Mood - Skin Skin Exam: Dry, Intact, Normal Color, Warm Objective - Vital Signs/Intake and Output Vital Signs (last 24 hours): Temp Pulse Resp BP Pulse Ox 97.8 F 97 H 20 145/85 96 10/31/17 16:00 10/31/17 16:00 10/31/17 16:00 10/31/17 16:00 10/31/17 16:00 Intake and Output: 10/31/17 11/01/17 18:59 06:59 Intake Total 720 Output Total 1600 Balance -880 - Medications Medications: Current Medications Allopurinol (Zyloprim) 100 mg PO BID [facility] Last Admin: 10/31/17 18:14 Dose: 100 mg Amlodipine Besylate (Norvasc) 10 mg PO DAILY [facility] Last Admin: 10/31/17 10:13 Dose: 10 mg Aspirin (Ecotrin) 325 mg PO DAILY [facility] Last Admin: 10/31/17 10:13 Dose: 325 mg Clopidogrel Bisulfate (Plavix) 75 mg PO DAILY [facility] Last Admin: 10/31/17 10:13 Dose: 75 mg Enoxaparin Sodium (Lovenox) 40 mg SC DAILY [facility] Last Admin: 10/31/17 10:13 Dose: 40 mg Furosemide (Lasix) 40 mg IVP DAILY [facility] Last Admin: 10/31/17 10:14 Dose: 40 mg Glipizide (Glucotrol Xl) 10 mg PO BID [facility] Last Admin: 10/31/17 18:13 Dose: 10 mg Ibuprofen (Motrin Tab) 600 mg PO Q8H PRN PRN Reason: Pain, moderate (4-7) Last Admin: 10/31/17 18:13 Dose: 600 mg Losartan Potassium (Cozaar) 100 mg PO DAILY [facility] Last Admin: 10/31/17 10:13 Dose: 100 mg Metformin HCl (Glucophage) 1,000 mg PO BID [facility] Last Admin: 10/31/17 18:13 Dose: 1,000 mg Metoprolol Succinate (Toprol Xl) 100 mg PO DAILY [facility] Last Admin: 10/31/17 10:13 Dose: 100 mg Potassium Chloride (K-Dur 20 Meq Er Tab) 20 meq PO DAILY [facility] Last Admin: 10/31/17 10:13 Dose: 20 meq Rosuvastatin Calcium (Crestor) 20 mg PO HS [facility] Last Admin: 10/31/17 21:18 Dose: 20 mg - Labs Labs: 10/30/17 06:15 10/30/17 06:15 Assessment and Plan - Assessment and Plan (Free Text) Assessment: CHF exacerbation Acute on Chronic systolic CHF Improving CAD - Will continue home medications plavix and aspirin, metoprolol and cozaar HTN - continue home medications: Norvasc DM - Continue home medications: Metformin and glipizide - Accuchecks - ISS HLD - Crestor 20 mg po hs Hx of gout - Will continue home medication: Allopurinol Prophylaxis -Lovenox
--- NOTE | 2017-11-01 09:12 | PN ---
DATE: 10/31/2017 The patient on supportive care, continue treatment. Gemma Castro MD [facility] # [id number]
--- NOTE | 2017-11-01 09:22 | HP ---
HISTORY OF PRESENT ILLNESS: The patient is a 52-year-old male who admitted to the hospital with chief complaint of shortness of breath, swelling in the lower extremity. The patient came to the ER, and advised admission. The patient has fever and hypertension. The patient is currently noncompliant. PHYSICAL EXAMINATION: GENERAL: The patient is awake, alert, and oriented. VITAL SIGNS: Temperature 98, pulse 90. HEENT: Within normal limits. NECK: Supple. CHEST: Symmetrical. HEART: Regular. ABDOMEN: Soft. EXTREMITIES: No edema. IMPRESSION: Congestive heart failure. The patient needs bedrest, supportive care, diuresis. Gemma Castro MD
--- NOTE | 2017-11-01 09:46 | CP.PCM.PN ---
Addendum entered and electronically signed by Jono Correa DO 11/01/17 18:08: Cardiac cath scheduled for Weds Original Note: <Jono Correa - Last Filed: 11/01/17 18:07> Subjective - Date & Time of Evaluation Date of Evaluation: 11/01/17 Time of Evaluation: 09:46 - Subjective Subjective: PGY [address] Beatty's Cardiology service Pt seen and examined at bedside. Nursing reports no acute events overnight. At bedside, patient educated on CHF. Explained importance of low-salt diet. Patient reports SOB improving with diuresis. Denies chest pain or palpitations. Admits stress test "5+ years ago" but denies previous cardiac cath. Objective - Vital Signs/Intake and Output Vital Signs (last 24 hours): Temp Pulse Resp BP Pulse Ox 97.6 F 97 H 20 141/97 H 99 10/31/17 23:05 11/01/17 03:30 10/31/17 23:05 11/01/17 08:17 10/31/17 23:05 - Medications Medications: Current Medications Allopurinol (Zyloprim) 100 mg PO BID [facility] Last Admin: 10/31/17 18:14 Dose: 100 mg Amlodipine Besylate (Norvasc) 10 mg PO DAILY [facility] Last Admin: 10/31/17 10:13 Dose: 10 mg Aspirin (Ecotrin) 325 mg PO DAILY [facility] Last Admin: 10/31/17 10:13 Dose: 325 mg Clopidogrel Bisulfate (Plavix) 75 mg PO DAILY [facility] Last Admin: 10/31/17 10:13 Dose: 75 mg Enoxaparin Sodium (Lovenox) 40 mg SC DAILY [facility] Last Admin: 10/31/17 10:13 Dose: 40 mg Furosemide (Lasix) 40 mg IVP DAILY [facility] Last Admin: 10/31/17 10:14 Dose: 40 mg Glipizide (Glucotrol Xl) 10 mg PO BID [facility] Last Admin: 10/31/17 18:13 Dose: 10 mg Ibuprofen (Motrin Tab) 600 mg PO Q8H PRN PRN Reason: Pain, moderate (4-7) Last Admin: 10/31/17 18:13 Dose: 600 mg Losartan Potassium (Cozaar) 100 mg PO DAILY [facility] Last Admin: 10/31/17 10:13 Dose: 100 mg Metformin HCl (Glucophage) 1,000 mg PO BID [facility] Last Admin: 10/31/17 18:13 Dose: 1,000 mg Metoprolol Succinate (Toprol Xl) 100 mg PO DAILY [facility] Last Admin: 10/31/17 10:13 Dose: 100 mg Potassium Chloride (K-Dur 20 Meq Er Tab) 20 meq PO DAILY [facility] Last Admin: 10/31/17 10:13 Dose: 20 meq Rosuvastatin Calcium (Crestor) 20 mg PO HS [facility] Last Admin: 10/31/17 21:18 Dose: 20 mg - Labs Labs: 10/30/17 06:15 10/30/17 06:15 - Additional Findings Additional findings: - Constitutional Appears: Non-toxic, No Acute Distress - Head Exam Head Exam: ATRAUMATIC - ENT Exam ENT Exam: Mucous Membranes Moist - Respiratory Exam Respiratory Exam: No rales. absent: Accessory Muscle Use, Rales, Rhonchi, Respiratory Distress - Cardiovascular Exam Cardiovascular Exam: REGULAR RHYTHM, +S1, +S2. absent: Gallop, Rubs, Murmur - GI/Abdominal Exam GI & Abdominal Exam: Soft, Normal Bowel Sounds. absent: Distended, Firm, Guarding, Rigid, Tenderness, Organomegaly - Extremities Exam Extremities Exam: + Pedal Edema (worse on right), mild Tenderness - Neurological Exam Neurological Exam: Alert, Awake, Oriented x3 - Psychiatric Exam Psychiatric exam: Normal Affect, Normal Mood - Skin Skin Exam: Dry, Intact, Normal Color, Warm Assessment and Plan - Assessment and Plan (Free Text) Plan: Acute on chronic systolic CHF Admitted to tele ECHO (10/30/17): EF 35-40% CXR (10/28/17): Cardiomegaly. Mild venous congestion. Small b/l pleural effusion. (see report) Lasix 40mg IV BID [facility] 100mg Losartan 100mg PO Daily Troponins negative x 2 CAD Stent placement ~3 years ago ASA 325mg PO Daily Plavix 75mg PO daily Toprol 100mg PO Daily Crestor 20mg PO Daily HTN well-controlled Norvasc 10mg PO Daily Toprol 100mg PO Daily Lasix 40mg IV Daily Jono Correa PGY-2 D/w Dr. Beatty <Tito Beatty - Last Filed: 11/01/17 22:12> Objective - Vital Signs/Intake and Output Vital Signs (last 24 hours): Temp Pulse Resp BP Pulse Ox 97.8 F 100 H 20 148/78 99 11/01/17 15:37 11/01/17 15:37 11/01/17 15:37 11/01/17 15:37 11/01/17 15:37 - Medications Medications: Current Medications Allopurinol (Zyloprim) 100 mg PO BID [facility] Last Admin: 11/01/17 17:16 Dose: 100 mg Amlodipine Besylate (Norvasc) 10 mg PO DAILY [facility] Last Admin: 11/01/17 10:17 Dose: 10 mg Aspirin (Ecotrin) 325 mg PO DAILY [facility] Last Admin: 11/01/17 10:17 Dose: 325 mg Clopidogrel Bisulfate (Plavix) 75 mg PO DAILY [facility] Last Admin: 11/01/17 10:17 Dose: 75 mg Enoxaparin Sodium (Lovenox) 40 mg SC DAILY [facility] Last Admin: 11/01/17 10:17 Dose: 40 mg Furosemide (Lasix) 40 mg IVP DAILY [facility] Last Admin: 11/01/17 10:17 Dose: 40 mg Glipizide (Glucotrol Xl) 10 mg PO BID [facility] Last Admin: 11/01/17 17:16 Dose: 10 mg Ibuprofen (Motrin Tab) 600 mg PO Q8H PRN PRN Reason: Pain, moderate (4-7) Last Admin: 11/01/17 17:21 Dose: 600 mg Losartan Potassium (Cozaar) 100 mg PO DAILY [facility] Last Admin: 11/01/17 10:17 Dose: 100 mg Metformin HCl (Glucophage) 1,000 mg PO BID [facility] Last Admin: 11/01/17 17:16 Dose: 1,000 mg Metoprolol Succinate (Toprol Xl) 100 mg PO DAILY [facility] Last Admin: 11/01/17 10:17 Dose: 100 mg Potassium Chloride (K-Dur 20 Meq Er Tab) 20 meq PO DAILY [facility] Last Admin: 11/01/17 10:17 Dose: 20 meq Rosuvastatin Calcium (Crestor) 20 mg PO HS [facility] Last Admin: 11/01/17 21:09 Dose: 20 mg - Labs Labs: 10/30/17 06:15 10/30/17 06:15 Assessment and Plan - Assessment and Plan (Free Text) Plan: Patient seen and evaluated personally by me Plan of care d/w the biomedical instrument technician and as documented
[2017-11-01] MEDS: Enoxaparin 40 mg Syringe SC SCH (10:17)
[2017-11-01] MEDS: Aspirin 325 mg EC Tablets PO SCH (10:17)
[2017-11-01] MEDS: Potassium Chloride 20 mEq ER Tab PO SCH (10:17)
[2017-11-01] MEDS: Metoprolol Succinate 100 mg XL Tab PO SCH (10:17)
[2017-11-01] MEDS: GlipiZIDE 10 mg SR Tab PO SCH ×2 (10:17→17:16)
--- NOTE | 2017-11-01 16:41 | CP.PCM.PN ---
Subjective - Date & Time of Evaluation Date of Evaluation: 11/01/17 Time of Evaluation: 09:12 - Subjective Subjective: PGY 2 Med Note- Dr. Castro's service Patient seen and examined in no apparent acute distress. Patient inquiring about further tests to be informed. Patient states that lower extremity swelling has decreased. Patient denies subjective fevers or chills, chest pain, palpitations, nausea, vomiting, diarrhea or constipation at this time. Objective - Vital Signs/Intake and Output Vital Signs (last 24 hours): Temp Pulse Resp BP Pulse Ox 97.8 F 100 H 20 148/78 99 11/01/17 15:37 11/01/17 15:37 11/01/17 15:37 11/01/17 15:37 11/01/17 15:37 - Medications Medications: Current Medications Allopurinol (Zyloprim) 100 mg PO BID [facility] Last Admin: 11/01/17 10:17 Dose: 100 mg Amlodipine Besylate (Norvasc) 10 mg PO DAILY [facility] Last Admin: 11/01/17 10:17 Dose: 10 mg Aspirin (Ecotrin) 325 mg PO DAILY [facility] Last Admin: 11/01/17 10:17 Dose: 325 mg Clopidogrel Bisulfate (Plavix) 75 mg PO DAILY [facility] Last Admin: 11/01/17 10:17 Dose: 75 mg Enoxaparin Sodium (Lovenox) 40 mg SC DAILY [facility] Last Admin: 11/01/17 10:17 Dose: 40 mg Furosemide (Lasix) 40 mg IVP DAILY [facility] Last Admin: 11/01/17 10:17 Dose: 40 mg Glipizide (Glucotrol Xl) 10 mg PO BID [facility] Last Admin: 11/01/17 10:17 Dose: 10 mg Ibuprofen (Motrin Tab) 600 mg PO Q8H PRN PRN Reason: Pain, moderate (4-7) Last Admin: 10/31/17 18:13 Dose: 600 mg Losartan Potassium (Cozaar) 100 mg PO DAILY [facility] Last Admin: 11/01/17 10:17 Dose: 100 mg Metformin HCl (Glucophage) 1,000 mg PO BID [facility] Last Admin: 11/01/17 10:17 Dose: 1,000 mg Metoprolol Succinate (Toprol Xl) 100 mg PO DAILY [facility] Last Admin: 11/01/17 10:17 Dose: 100 mg Potassium Chloride (K-Dur 20 Meq Er Tab) 20 meq PO DAILY [facility] Last Admin: 11/01/17 10:17 Dose: 20 meq Rosuvastatin Calcium (Crestor) 20 mg PO HS [facility] Last Admin: 10/31/17 21:18 Dose: 20 mg - Labs Labs: 10/30/17 06:15 10/30/17 06:15 - Constitutional Appears: Non-toxic, No Acute Distress - Head Exam Head Exam: NORMAL INSPECTION - Eye Exam Eye Exam: EOMI, Normal appearance, PERRL Pupil Exam: NORMAL ACCOMODATION - ENT Exam ENT Exam: Mucous Membranes Moist - Neck Exam Neck Exam: Full ROM - Respiratory Exam Respiratory Exam: NORMAL BREATHING PATTERN. absent: Wheezes - Cardiovascular Exam Cardiovascular Exam: +S1, +S2 - GI/Abdominal Exam GI & Abdominal Exam: Soft, Normal Bowel Sounds - Extremities Exam Extremities Exam: Full ROM - Back Exam Back Exam: Full ROM - Neurological Exam Neurological Exam: Alert, Awake - Psychiatric Exam Psychiatric exam: Normal Affect, Normal Mood - Skin Skin Exam: Dry, Warm Assessment and Plan - Assessment and Plan (Free Text) Assessment: CHF exacerbation - On admission CXR showed mild pulm venous congestion, small B/L pleural effusion - ProBNP was 1530 - Pt was started on Lasix 40 mg IVP daily - Cardiology, Dr. Beatty is consulted. F/U recommendations - Echo - EF 38 % LE swelling and pain -Improved - Likely due to CHF exacerbation - LE dopplers are ordered- Negative for DVT - Ibuprofen 600 mg po q6 prn for pain. 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 F/U recommendations HTN -Norvasc -Monitor DM - Continue home medications: Metformin and glipizide - Accuchecks - ISS HLD - Crestor 20 mg po hs Hx of gout - Will continue home medication: Allopurinol Prophylaxis -Lovenox GI Prophylaxis not currently indicated. Case discussed with attending, Dr. Castro. All management and orders per Dr. Castro
[2017-11-02] MEDS: GlipiZIDE 10 mg SR Tab PO SCH ×2 (09:46→17:09)
[2017-11-02] MEDS: Aspirin 325 mg EC Tablets PO SCH (09:46)
[2017-11-02] MEDS: Enoxaparin 40 mg Syringe SC SCH (09:46)
[2017-11-02] MEDS: Metoprolol Succinate 100 mg XL Tab PO SCH (09:46)
[2017-11-02] MEDS: Potassium Chloride 20 mEq ER Tab PO SCH (09:47)
--- NOTE | 2017-11-02 16:26 | CP.PCM.PN ---
Subjective - Date & Time of Evaluation Date of Evaluation: 11/02/17 Time of Evaluation: 11:00 - Subjective Subjective: PGY 2 Medicine Note- Dr. Castro's service Patient seen and examined in no acute distress. Per nursing, patient is not complying with lab draws. Patient states that he feels better. Patient inquired about cardiology recommendations. He denies subjective fevers or chills, headaches, chest pain, nausea, vomiting or diarrhea at this time. Objective - Vital Signs/Intake and Output Vital Signs (last 24 hours): Temp Pulse Resp BP Pulse Ox 97.7 F 93 H 20 115/61 98 11/02/17 15:50 11/02/17 15:50 11/02/17 15:50 11/02/17 15:50 11/02/17 15:50 - Medications Medications: Current Medications Allopurinol (Zyloprim) 100 mg PO BID [facility] Last Admin: 11/02/17 09:46 Dose: 100 mg Amlodipine Besylate (Norvasc) 10 mg PO DAILY [facility] Last Admin: 11/02/17 09:46 Dose: 10 mg Aspirin (Ecotrin) 325 mg PO DAILY [facility] Last Admin: 11/02/17 09:46 Dose: 325 mg Clopidogrel Bisulfate (Plavix) 75 mg PO DAILY [facility] Last Admin: 11/02/17 09:46 Dose: 75 mg Enoxaparin Sodium (Lovenox) 40 mg SC DAILY [facility] Last Admin: 11/02/17 09:46 Dose: 40 mg Furosemide (Lasix) 40 mg IVP DAILY [facility] Last Admin: 11/02/17 14:22 Dose: 40 mg Glipizide (Glucotrol Xl) 10 mg PO BID [facility] Last Admin: 11/02/17 09:46 Dose: 10 mg Ibuprofen (Motrin Tab) 600 mg PO Q8H PRN PRN Reason: Pain, moderate (4-7) Last Admin: 11/02/17 14:22 Dose: 600 mg Losartan Potassium (Cozaar) 100 mg PO DAILY [facility] Last Admin: 11/02/17 09:46 Dose: 100 mg Metformin HCl (Glucophage) 1,000 mg PO BID [facility] Last Admin: 11/02/17 09:46 Dose: 1,000 mg Metoprolol Succinate (Toprol Xl) 100 mg PO DAILY [facility] Last Admin: 11/02/17 09:46 Dose: 100 mg Potassium Chloride (K-Dur 20 Meq Er Tab) 20 meq PO DAILY [facility] Last Admin: 11/02/17 09:47 Dose: 20 meq Rosuvastatin Calcium (Crestor) 20 mg PO HS [facility] Last Admin: 11/01/17 21:09 Dose: 20 mg - Labs Labs: 10/30/17 06:15 10/30/17 06:15 - Constitutional Appears: Non-toxic, No Acute Distress - Head Exam Head Exam: ATRAUMATIC - Eye Exam Eye Exam: EOMI, Normal appearance, PERRL Pupil Exam: NORMAL ACCOMODATION - ENT Exam ENT Exam: Mucous Membranes Moist - Neck Exam Neck Exam: Full ROM - Respiratory Exam Respiratory Exam: NORMAL BREATHING PATTERN. absent: Wheezes - Cardiovascular Exam Cardiovascular Exam: +S1, +S2 - GI/Abdominal Exam GI & Abdominal Exam: Soft, Normal Bowel Sounds - Extremities Exam Extremities Exam: Full ROM, Normal Capillary Refill - Back Exam Back Exam: Full ROM - Neurological Exam Neurological Exam: Alert, Awake, Oriented x3 - Psychiatric Exam Psychiatric exam: Normal Affect, Normal Mood - Skin Skin Exam: Normal Color, Warm Assessment and Plan - Assessment and Plan (Free Text) Assessment: CHF exacerbation - On admission CXR showed mild pulm venous congestion, small B/L pleural effusion - ProBNP was 1530 - Pt was started on Lasix 40 mg IVP daily - Cardiology, Dr. Beatty is consulted. F/U recommendations. - Echo - EF 38 % LE swelling and pain -Improved - Likely due to CHF exacerbation - LE dopplers are ordered- Negative for DVT - Ibuprofen 600 mg po q6 prn for pain. Normal BUN and Cr CAD -Will continue home medications plavix and aspirin, metoprolol and cozaar. Hold Plavix -To have cardiac catheterization 11/03 with [employer] . F/U recommendations HTN -Norvasc -Monitor DM - Continue home medications: Metformin and glipizide - Accuchecks - ISS HLD - Crestor 20 mg po hs Hx of gout - Will continue home medication: Allopurinol Prophylaxis -Lovenox- Hold. -GI Prophylaxis not currently indicated. Case discussed with attending, Dr. Castro. All management and orders per Dr. Castro
--- NOTE | 2017-11-02 23:32 | CP.PCM.PN ---
Subjective - Date & Time of Evaluation Date of Evaluation: 11/02/17 Time of Evaluation: 19:30 - Subjective Subjective: Patient seen and evaluated Denies chest pain and dyspnea Scheduled for Cath in am due to systolic CHF Objective - Vital Signs/Intake and Output Vital Signs (last 24 hours): Temp Pulse Resp BP Pulse Ox 97.7 F 93 H 20 115/61 98 11/02/17 15:50 11/02/17 15:50 11/02/17 15:50 11/02/17 15:50 11/02/17 15:50 - Medications Medications: Current Medications Allopurinol (Zyloprim) 100 mg PO BID [facility] Last Admin: 11/02/17 17:09 Dose: 100 mg Amlodipine Besylate (Norvasc) 10 mg PO DAILY [facility] Last Admin: 11/02/17 09:46 Dose: 10 mg Aspirin (Ecotrin) 325 mg PO DAILY [facility] Last Admin: 11/02/17 09:46 Dose: 325 mg Clopidogrel Bisulfate (Plavix) 75 mg PO DAILY [facility] Last Admin: 11/02/17 09:46 Dose: 75 mg Enoxaparin Sodium (Lovenox) 40 mg SC DAILY [facility] Last Admin: 11/02/17 09:46 Dose: 40 mg Furosemide (Lasix) 40 mg IVP DAILY [facility] Last Admin: 11/02/17 14:22 Dose: 40 mg Glipizide (Glucotrol Xl) 10 mg PO BID [facility] Last Admin: 11/02/17 17:09 Dose: 10 mg Ibuprofen (Motrin Tab) 600 mg PO Q8H PRN PRN Reason: Pain, moderate (4-7) Last Admin: 11/02/17 22:37 Dose: 600 mg Losartan Potassium (Cozaar) 100 mg PO DAILY [facility] Last Admin: 11/02/17 09:46 Dose: 100 mg Metformin HCl (Glucophage) 1,000 mg PO BID [facility] Last Admin: 11/02/17 17:09 Dose: 1,000 mg Metoprolol Succinate (Toprol Xl) 100 mg PO DAILY [facility] Last Admin: 11/02/17 09:46 Dose: 100 mg Potassium Chloride (K-Dur 20 Meq Er Tab) 20 meq PO DAILY [facility] Last Admin: 11/02/17 09:47 Dose: 20 meq Rosuvastatin Calcium (Crestor) 20 mg PO HS [facility] Last Admin: 11/02/17 21:38 Dose: 20 mg - Labs Labs: 10/30/17 06:15 10/30/17 06:15
[2017-11-03 07:29] LABS: BASO % 0.5 % (0.0-2.0); EOS # 0.1 K/uL (0.0-0.7); EOS % 1.6 % (0.0-4.0); HEMOGLOBIN 10.4 g/dL (12.0-18.0); LYMPH # 1.6 K/uL (1.0-4.3); LYMPH % 23.9 % (20.0-40.0); MEAN CELL VOLUME 84.4 fL (80.0-94.0); MEAN CORPUSCULAR HGB CONC 31.9 g/dL (33.0-37.0); MEAN PLATELET VOLUME 8.1 fL (7.2-11.7); MONO # 0.8 K/uL (0.0-0.8); MONO % 12.1 % (0.0-10.0); NEUT # 4.2 K/uL (1.8-7.0); NEUT % 61.9 % (50.0-75.0); RBC 3.85 Mil/uL (4.40-5.90); RED CELL DISTRIBUTION WIDTH 15.4 % (11.5-14.5); WHITE BLOOD COUNT 6.8 K/uL (4.8-10.8)
[2017-11-03 07:35] LABS: INR 1.1; PROTHROMBIN TIME 12.4 SECONDS (9.7-12.2)
[2017-11-03 07:50] LABS: ALBUMIN 3.3 g/dL (3.5-5.0); ALT/SGPT 45 U/L (21-72); AST/SGOT 49 U/L (17-59); BLOOD UREA NITROGEN 18 mg/dL (9-20); CALCIUM 8.3 mg/dl (8.6-10.4); GFR AFRICAN-AMERICAN > 60; GFR NON-AFRICAN AMERICAN > 60
[2017-11-03] MEDS ORDERED: Midazolam 2 MG/2 ML VIAL ONE (07:53)
--- NOTE | 2017-11-03 08:05 | CP.PCM.PN ---
Subjective - Date & Time of Evaluation Date of Evaluation: 11/03/17 Time of Evaluation: 07:00 - Subjective Subjective: PGY 2 Medicine Note- Dr. Castro's service Patient seen and examined in no acute distress. Per nursing, patient is not complying with lab draws. Patient states that he feels better. Patient inquired about cardiology recommendations. He denies subjective fevers or chills, headaches, chest pain, nausea, vomiting or diarrhea at this time. Patient had cath procedure done today. Objective - Vital Signs/Intake and Output Vital Signs (last 24 hours): Temp Pulse Resp BP Pulse Ox 97.6 F 93 H 18 145/93 H 97 11/03/17 07:05 11/03/17 07:05 11/03/17 07:05 11/03/17 07:05 11/03/17 07:05 Intake and Output: 11/03/17 11/03/17 06:59 18:59 Output Total 200 Balance -200 - Medications Medications: Current Medications Allopurinol (Zyloprim) 100 mg PO BID [facility] Last Admin: 11/02/17 17:09 Dose: 100 mg Amlodipine Besylate (Norvasc) 10 mg PO DAILY [facility] Last Admin: 11/02/17 09:46 Dose: 10 mg Aspirin (Ecotrin) 325 mg PO DAILY [facility] Last Admin: 11/02/17 09:46 Dose: 325 mg Clopidogrel Bisulfate (Plavix) 75 mg PO DAILY [facility] Last Admin: 11/02/17 09:46 Dose: 75 mg Enoxaparin Sodium (Lovenox) 40 mg SC DAILY [facility] Last Admin: 11/02/17 09:46 Dose: 40 mg Furosemide (Lasix) 40 mg IVP DAILY [facility] Last Admin: 11/02/17 14:22 Dose: 40 mg Glipizide (Glucotrol Xl) 10 mg PO BID [facility] Last Admin: 11/02/17 17:09 Dose: 10 mg Ibuprofen (Motrin Tab) 600 mg PO Q8H PRN PRN Reason: Pain, moderate (4-7) Last Admin: 11/02/17 22:37 Dose: 600 mg Losartan Potassium (Cozaar) 100 mg PO DAILY [facility] Last Admin: 11/02/17 09:46 Dose: 100 mg Metformin HCl (Glucophage) 1,000 mg PO BID [facility] Last Admin: 11/02/17 17:09 Dose: 1,000 mg Metoprolol Succinate (Toprol Xl) 100 mg PO DAILY [facility] Last Admin: 11/02/17 09:46 Dose: 100 mg Potassium Chloride (K-Dur 20 Meq Er Tab) 20 meq PO DAILY [facility] Last Admin: 11/02/17 09:47 Dose: 20 meq Rosuvastatin Calcium (Crestor) 20 mg PO HS [facility] Last Admin: 11/02/17 21:38 Dose: 20 mg - Labs Labs: 11/03/17 07:16 11/03/17 07:16 PT 12.4 SECONDS (9.7-12.2) H 11/03/17 07:16 INR 1.1 11/03/17 07:16 APTT 28 SECONDS (21-34) 11/03/17 07:16 - Constitutional Appears: Non-toxic, No Acute Distress - Head Exam Head Exam: ATRAUMATIC, NORMAL INSPECTION - Eye Exam Eye Exam: EOMI, PERRL Pupil Exam: NORMAL ACCOMODATION - ENT Exam ENT Exam: Mucous Membranes Moist - Respiratory Exam Respiratory Exam: Clear to Ausculation Bilateral, NORMAL BREATHING PATTERN. absent: Respiratory Distress - Cardiovascular Exam Cardiovascular Exam: REGULAR RHYTHM, +S1, +S2 - GI/Abdominal Exam GI & Abdominal Exam: Soft, Normal Bowel Sounds. absent: Distended, Firm, Guarding, Tenderness - Extremities Exam Extremities Exam: Normal Inspection. absent: Calf Tenderness - Back Exam Back Exam: NORMAL INSPECTION. absent: CVA tenderness (L), CVA tenderness (R), paraspinal tenderness - Neurological Exam Neurological Exam: Alert, Awake, CN II-XII Intact, Normal Gait, Oriented x3 - Psychiatric Exam Psychiatric exam: Normal Affect, Normal Mood - Skin Skin Exam: Normal Color Assessment and Plan - Assessment and Plan (Free Text) Assessment: CHF exacerbation - On admission CXR showed mild pulm venous congestion, small B/L pleural effusion - ProBNP was 1530 - Pt was started on Lasix 40 mg IVP daily - Cardiology, Dr. Beatty is consulted. F/U recommendations. Patient had cardiac cath performed today which showed EF 25% and LAD lesion 80% Patient will need life vest before discharge Medical management Patient will need stenting at a later date - Echo - Upon review of the echo cardiology estimates the ef <35% LE swelling and pain -Improved - Likely due to CHF exacerbation - LE dopplers are ordered- Negative for DVT - Ibuprofen 600 mg po q6 prn for pain. Normal BUN and Cr CAD -Will continue home medications plavix and aspirin, metoprolol and cozaar. Hold Plavix -To have cardiac catheterization 11/03 with [employer] . F/U recommendations HTN -Norvasc -Monitor DM - Continue home medications: Metformin and glipizide - Accuchecks - ISS HLD - Crestor 20 mg po hs Hx of gout - Will continue home medication: Allopurinol Prophylaxis -Lovenox- Hold. -GI Prophylaxis not currently indicated. Dispo: pending life vest placement Case discussed with attending, Dr. Castro. All management and orders per Dr. Castro
[2017-11-03 10:25] VITALS: RESP 20
[2017-11-03] MEDS: Potassium Chloride 20 mEq ER Tab PO SCH (11:01)
[2017-11-03] MEDS: Aspirin 325 mg EC Tablets PO SCH (11:01)
[2017-11-03] MEDS: GlipiZIDE 10 mg SR Tab PO SCH ×2 (11:02→17:50)
[2017-11-03] MEDS: Metoprolol Succinate 100 mg XL Tab PO SCH (11:02)
--- NOTE | 2017-11-03 21:56 | CP.PCM.PN ---
Subjective - Date & Time of Evaluation Date of Evaluation: 11/03/17 Time of Evaluation: 19:10 - Subjective Subjective: Patient s/p cath Mid LAD mid 80% stenosis, unlikely the etiology for the low EF EF 20-30% For Life Vest LAD/PCI as out patient Objective - Vital Signs/Intake and Output Vital Signs (last 24 hours): Temp Pulse Resp BP Pulse Ox 97.9 F 102 H 20 168/86 H 96 11/03/17 15:58 11/03/17 16:00 11/03/17 15:58 11/03/17 15:58 11/03/17 15:58 - Medications Medications: Current Medications Allopurinol (Zyloprim) 100 mg PO BID [facility] Last Admin: 11/03/17 17:50 Dose: 100 mg Amlodipine Besylate (Norvasc) 10 mg PO DAILY [facility] Last Admin: 11/03/17 11:02 Dose: 10 mg Aspirin (Ecotrin) 325 mg PO DAILY [facility] Last Admin: 11/03/17 11:01 Dose: 325 mg Clopidogrel Bisulfate (Plavix) 75 mg PO DAILY [facility] Last Admin: 11/02/17 09:46 Dose: 75 mg Enoxaparin Sodium (Lovenox) 40 mg SC DAILY [facility] Last Admin: 11/02/17 09:46 Dose: 40 mg Furosemide (Lasix) 40 mg IVP DAILY [facility] Last Admin: 11/03/17 14:06 Dose: 40 mg Glipizide (Glucotrol Xl) 10 mg PO BID [facility] Last Admin: 11/03/17 17:50 Dose: 10 mg Ibuprofen (Motrin Tab) 600 mg PO Q8H PRN PRN Reason: Pain, moderate (4-7) Last Admin: 11/03/17 17:51 Dose: 600 mg Losartan Potassium (Cozaar) 100 mg PO DAILY [facility] Last Admin: 11/03/17 11:02 Dose: 100 mg Metformin HCl (Glucophage) 1,000 mg PO BID [facility] Last Admin: 11/03/17 17:50 Dose: 1,000 mg Metoprolol Succinate (Toprol Xl) 100 mg PO DAILY [facility] Last Admin: 11/03/17 11:02 Dose: 100 mg Potassium Chloride (K-Dur 20 Meq Er Tab) 20 meq PO DAILY [facility] Last Admin: 11/03/17 11:01 Dose: 20 meq Rosuvastatin Calcium (Crestor) 20 mg PO HS [facility] Last Admin: 11/03/17 21:38 Dose: 20 mg - Labs Labs: 11/03/17 07:16 11/03/17 07:16 PT 12.4 SECONDS (9.7-12.2) H 11/03/17 07:16 INR 1.1 11/03/17 07:16 APTT 28 SECONDS (21-34) 11/03/17 07:16
--- NOTE | 2017-11-04 07:27 | CP.PCM.PN ---
Subjective - Date & Time of Evaluation Date of Evaluation: 11/04/17 Time of Evaluation: 07:00 - Subjective Subjective: PGY 2 Medicine Note- Dr. Castro's service Patient seen and examined in no acute distress. He denies subjective fevers or chills, SOB, headaches, chest pain, nausea, vomiting or diarrhea at this time. Patient is stable for discharge once the lifevest is fitted. Patient states he would have to leave by 3PM or he would not want to leave. Objective - Vital Signs/Intake and Output Vital Signs (last 24 hours): Temp Pulse Resp BP Pulse Ox 97.9 F 98 H 20 136/89 98 11/03/17 23:10 11/03/17 23:10 11/03/17 23:10 11/03/17 23:10 11/03/17 23:10 Intake and Output: 11/04/17 11/04/17 06:59 18:59 Intake Total 0 Output Total 485 Balance -485 - Medications Medications: Current Medications Allopurinol (Zyloprim) 100 mg PO BID [facility] Last Admin: 11/03/17 17:50 Dose: 100 mg Amlodipine Besylate (Norvasc) 10 mg PO DAILY [facility] Last Admin: 11/03/17 11:02 Dose: 10 mg Aspirin (Ecotrin) 325 mg PO DAILY [facility] Last Admin: 11/03/17 11:01 Dose: 325 mg Clopidogrel Bisulfate (Plavix) 75 mg PO DAILY [facility] Last Admin: 11/02/17 09:46 Dose: 75 mg Enoxaparin Sodium (Lovenox) 40 mg SC DAILY [facility] Last Admin: 11/02/17 09:46 Dose: 40 mg Furosemide (Lasix) 40 mg IVP DAILY [facility] Last Admin: 11/03/17 14:06 Dose: 40 mg Glipizide (Glucotrol Xl) 10 mg PO BID [facility] Last Admin: 11/03/17 17:50 Dose: 10 mg Ibuprofen (Motrin Tab) 600 mg PO Q8H PRN PRN Reason: Pain, moderate (4-7) Last Admin: 11/03/17 17:51 Dose: 600 mg Losartan Potassium (Cozaar) 100 mg PO DAILY [facility] Last Admin: 11/03/17 11:02 Dose: 100 mg Metformin HCl (Glucophage) 1,000 mg PO BID [facility] Last Admin: 04/18/18 17:50 Dose: 1,000 mg Metoprolol Succinate (Toprol Xl) 100 mg PO DAILY [facility] Last Admin: 11/03/17 11:02 Dose: 100 mg Potassium Chloride (K-Dur 20 Meq Er Tab) 20 meq PO DAILY [facility] Last Admin: 11/03/17 11:01 Dose: 20 meq Rosuvastatin Calcium (Crestor) 20 mg PO HS [facility] Last Admin: 11/03/17 21:38 Dose: 20 mg - Labs Labs: 11/03/17 07:16 11/03/17 07:16 PT 12.4 SECONDS (9.7-12.2) H 11/03/17 07:16 INR 1.1 11/03/17 07:16 APTT 28 SECONDS (21-34) 11/03/17 07:16 - Constitutional Appears: Non-toxic, No Acute Distress - Head Exam Head Exam: ATRAUMATIC, NORMAL INSPECTION - Eye Exam Eye Exam: EOMI - ENT Exam ENT Exam: Mucous Membranes Moist - Respiratory Exam Respiratory Exam: Clear to Ausculation Bilateral, NORMAL BREATHING PATTERN. absent: Respiratory Distress - Cardiovascular Exam Cardiovascular Exam: REGULAR RHYTHM, +S1, +S2 - GI/Abdominal Exam GI & Abdominal Exam: Soft, Normal Bowel Sounds. absent: Distended, Firm, Guarding, Tenderness - Extremities Exam Extremities Exam: Normal Inspection, Pedal Edema. absent: Calf Tenderness Additional comments: lower ext edema b/l - Back Exam Back Exam: NORMAL INSPECTION. absent: CVA tenderness (L), CVA tenderness (R), paraspinal tenderness - Neurological Exam Neurological Exam: Alert, Awake, CN II-XII Intact, Oriented x3 Neuro motor strength exam: Left Upper Extremity: 5, Right Upper Extremity: 5, Left Lower Extremity: 5, Right Lower Extremity: 5 - Psychiatric Exam Psychiatric exam: Normal Affect, Normal Mood Assessment and Plan - Assessment and Plan (Free Text) Assessment: CHF exacerbation - On admission CXR showed mild pulm venous congestion, small B/L pleural effusion - ProBNP was 1530 - Pt was started on Lasix 40 mg IVP daily - Cardiology, Dr. Beatty is consulted. F/U recommendations. Patient had cardiac cath performed today which showed EF 25% and LAD lesion 80% Patient will need life vest before discharge Medical management Patient will need stenting at a later date - Echo - Upon review of the echo cardiology estimates the ef <35% LE swelling and pain -Improved - Likely due to CHF exacerbation - LE dopplers are ordered- Negative for DVT - Ibuprofen 600 mg po q6 prn for pain. Normal BUN and Cr CAD -Will continue home medications plavix and aspirin, metoprolol and cozaar. Hold Plavix -To have cardiac catheterization 11/03 with [employer] . F/U recommendations HTN -Norvasc -Monitor DM - Continue home medications: Metformin and glipizide - Accuchecks - ISS HLD - Crestor 20 mg po hs Hx of gout - Will continue home medication: Allopurinol Prophylaxis -Lovenox- Hold. -GI Prophylaxis not currently indicated. Dispo: pending life vest placement Patient is stable for discharge home pending life vest placement. Patient is to call the office of Dr. Ezra Castro and follow up within one week for post hospital care. He is also to call the office of Dr. Beatty (cardiology) for follow up within one week of discharge. The patient is to wear the cardiac lifevest at all times (except when in the shower) as instructed during his hospital stay. He is to take the following medications: 1. Aspirin 81mg by mouth daily 2. Lasix 40mg one by mouth daily 3. Metoprolol succ 100mg one by mouth daily 4. Valsartan/Hctz 320/12.5mg one by mouth daily 5. Allopurinol 100mg one by mouth daily 6. Norvasc 10mg one by mouth daily 7. Lipitor 40mg one by mouth daily 8. Plavix 75mg one by mouth daily 9. Glipizide ER 10mg one by mouth twice a day 10. Metformin 1000mg one by mouth twice a day Patient was given scripts for one month supply of these meds. Patient is to return to the hospital if his symptoms return. All instructions explained to the patient and he agrees. Case discussed with attending, Dr. Castro. All management and orders per Dr. Castro
[2017-11-04] MEDS: Potassium Chloride 20 mEq ER Tab PO SCH (10:30)
[2017-11-04] MEDS: Aspirin 325 mg EC Tablets PO SCH (10:30)
[2017-11-04] MEDS: Metoprolol Succinate 100 mg XL Tab PO SCH (10:30)
[2017-11-04] MEDS: GlipiZIDE 10 mg SR Tab PO SCH ×2 (10:31→17:18)
[2017-11-04] MEDS: Enoxaparin 40 mg Syringe SC SCH (10:31)
--- NOTE | 2017-11-04 18:07 | CARDCATH ---
PROCEDURE DATE: 11/03/2017 CLINICAL INDICATIONS: 1. Dyspnea. 2. Chronic systolic congestive heart failure. 3. Hypertension. 4. Hyperlipidemia. 5. Obesity. REFERRING PHYSICIAN: Gemma Castro MD PERFORMING PHYSICIAN: Tito Beatty MD PROCEDURES: 1. Left heart catheterization. 2. Coronary angiogram. 3. Radiological supervision and radiological interpretation of the left heart catheterization and coronary angiogram. DESCRIPTION OF PROCEDURE: After informed consent, the patient was prepped and draped in the usual sterile fashion. Lidocaine 2% was given in the right groin for local anesthesia. Using micropuncture technique, a 6-[place] sheath was introduced into the right common femoral artery. A JL4 6-[place] diagnostic catheter was engaged into left main coronary artery. Contrast injected and left coronary angiogram was done. Then, JR4 6-[place] diagnostic catheter engaged into the right coronary artery. Contrast injected and right coronary angiogram was done. After that, a 6-[place] pigtail catheter was inserted into the left ventricle across the aortic valve. LV end-diastolic pressure measured. Contrast injected and LV angiogram was done. The catheter was pulled back across the aortic valve. Gradient across the aortic valve was measured. The patient tolerated the procedure well. FINDINGS: 1. Left main coronary artery is patent. 2. Mid LAD has a smooth concentric 70% stenosis. However, the patient has a good LETITIA-3 flow distal to the lesion. 3. Left circumflex and obtuse marginal branches are patent. 4. Right coronary artery is dominant and patent. 5. LV is dilated. The patient has global hypokinesis. Estimated ejection fraction is approximately 25% to 30%. EDP is 28. No gradient across the aortic valve. IMPRESSION: 1. Single vessel coronary artery disease. 2. Dilated cardiomyopathy with ejection fraction of 25% to 30%. PLAN: 1. Recommend aggressive medical management for congestive heart failure. 2. LifeVest evaluation. 3. Recommend FFR-guided coronary angioplasty of the left anterior descending coronary artery. Tito Beatty MD
--- NOTE | 2017-11-04 22:20 | CP.PCM.PN ---
Subjective - Date & Time of Evaluation Date of Evaluation: 11/04/17 Time of Evaluation: 17:20 - Subjective Subjective: Patient seen and evaluated Denies chest pain and dyspnea Physical Examination - Constitutional Appears: Non-toxic, No Acute Distress - Head Exam Head Exam: ATRAUMATIC, NORMAL INSPECTION - Eye Exam Eye Exam: EOMI - ENT Exam ENT Exam: Mucous Membranes Moist - Respiratory Exam Respiratory Exam: Clear to Ausculation Bilateral, NORMAL BREATHING PATTERN. absent: Respiratory Distress - Cardiovascular Exam Cardiovascular Exam: REGULAR RHYTHM, +S1, +S2 - GI/Abdominal Exam GI & Abdominal Exam: Soft, Normal Bowel Sounds. absent: Distended, Firm, Guarding, Tenderness - Extremities Exam Extremities Exam: Normal Inspection, Pedal Edema. absent: Calf Tenderness Additional comments: lower ext edema b/l - Back Exam Back Exam: NORMAL INSPECTION. absent: CVA tenderness (L), CVA tenderness (R), paraspinal tenderness - Neurological Exam Neurological Exam: Alert, Awake, CN II-XII Intact, Oriented x3 Neuro motor strength exam: Left Upper Extremity: 5, Right Upper Extremity: 5, Left Lower Extremity: 5, Right Lower Extremity: 5 - Psychiatric Exam Psychiatric exam: Normal Affect, Normal Mood Objective - Vital Signs/Intake and Output Vital Signs (last 24 hours): Temp Pulse Resp BP Pulse Ox 98.3 F 99 H 20 143/92 H 100 11/04/17 15:37 11/04/17 16:00 11/04/17 15:37 11/04/17 15:37 11/04/17 15:37 Intake and Output: 11/04/17 11/05/17 18:59 06:59 Output Total 2900 Balance -2900 - Medications Medications: Current Medications Allopurinol (Zyloprim) 100 mg PO BID [facility] Last Admin: 11/04/17 17:18 Dose: 100 mg Amlodipine Besylate (Norvasc) 10 mg PO DAILY [facility] Last Admin: 11/04/17 10:45 Dose: Not Given Aspirin (Ecotrin) 325 mg PO DAILY [facility] Last Admin: 11/04/17 10:30 Dose: 325 mg Clopidogrel Bisulfate (Plavix) 75 mg PO DAILY [facility] Last Admin: 11/04/17 10:30 Dose: 75 mg Enoxaparin Sodium (Lovenox) 40 mg SC DAILY [facility] Last Admin: 11/04/17 10:31 Dose: 40 mg Furosemide (Lasix) 40 mg IVP DAILY [facility] Last Admin: 11/04/17 10:33 Dose: 40 mg Glipizide (Glucotrol Xl) 10 mg PO BID [facility] Last Admin: 11/04/17 17:18 Dose: 10 mg Ibuprofen (Motrin Tab) 600 mg PO Q8H PRN PRN Reason: Pain, moderate (4-7) Last Admin: 11/04/17 21:02 Dose: 600 mg Losartan Potassium (Cozaar) 100 mg PO DAILY [facility] Last Admin: 11/04/17 10:31 Dose: 100 mg Metformin HCl (Glucophage) 1,000 mg PO BID [facility] Last Admin: 11/04/17 17:18 Dose: 1,000 mg Metoprolol Succinate (Toprol Xl) 100 mg PO DAILY [facility] Last Admin: 11/04/17 10:30 Dose: 100 mg Potassium Chloride (K-Dur 20 Meq Er Tab) 20 meq PO DAILY [facility] Last Admin: 11/04/17 10:30 Dose: 20 meq Rosuvastatin Calcium (Crestor) 20 mg PO HS [facility] Last Admin: 11/04/17 21:02 Dose: 20 mg - Labs Labs: 11/03/17 07:16 11/03/17 07:16 PT 12.4 SECONDS (9.7-12.2) H 11/03/17 07:16 INR 1.1 11/03/17 07:16 APTT 28 SECONDS (21-34) 11/03/17 07:16 Assessment and Plan - Assessment and Plan (Free Text) Assessment: CHF exacerbation s/p Acute on Chronic systolic CHF Better CHF management with DREW I and B blockers CAD Mid LAD 70% stenosis HTN -Norvasc -Monitor DM - Continue home medications: Metformin and glipizide - Accuchecks - ISS HLD - Crestor 20 mg po hs Hx of gout - Will continue home medication: Allopurinol Prophylaxis -Lovenox- Hold. -GI Prophylaxis not currently indicated. F/U Dr. Rudy Blandon for cardiology as out patient due to insurance issues ( I do not participate with Patient's insurance) D/W Dr. Blandon who agreed to take care of the patient
[2017-11-05 00:10] VITALS: O2SAT 96
--- NOTE | 2017-11-05 07:36 | CP.PCM.PN ---
Subjective - Date & Time of Evaluation Date of Evaluation: 11/05/17 Time of Evaluation: 10:15 - Subjective Subjective: PGY 2 Medicine Progress Note Patient to go home today. Patient was to be discharged yesterday but was not able to make arrangements to leave the day prior. Patient anticipating discharge. Objective - Vital Signs/Intake and Output Vital Signs (last 24 hours): Temp Pulse Resp BP Pulse Ox 98.0 F 101 H 20 144/81 96 11/04/17 23:10 11/04/17 23:10 11/04/17 23:10 11/04/17 23:10 11/04/17 23:10 Intake and Output: 11/05/17 11/05/17 06:59 18:59 Intake Total 0 Output Total 750 Balance -750 - Medications Medications: Current Medications Allopurinol (Zyloprim) 100 mg PO BID [facility] Last Admin: 11/04/17 17:18 Dose: 100 mg Amlodipine Besylate (Norvasc) 10 mg PO DAILY [facility] Last Admin: 11/04/17 10:45 Dose: Not Given Aspirin (Ecotrin) 325 mg PO DAILY [facility] Last Admin: 11/04/17 10:30 Dose: 325 mg Clopidogrel Bisulfate (Plavix) 75 mg PO DAILY [facility] Last Admin: 11/04/17 10:30 Dose: 75 mg Enoxaparin Sodium (Lovenox) 40 mg SC DAILY [facility] Last Admin: 11/04/17 10:31 Dose: 40 mg Furosemide (Lasix) 40 mg IVP DAILY [facility] Last Admin: 11/04/17 10:33 Dose: 40 mg Glipizide (Glucotrol Xl) 10 mg PO BID [facility] Last Admin: 11/04/17 17:18 Dose: 10 mg Ibuprofen (Motrin Tab) 600 mg PO Q8H PRN PRN Reason: Pain, moderate (4-7) Last Admin: 11/04/17 21:02 Dose: 600 mg Losartan Potassium (Cozaar) 100 mg PO DAILY [facility] Last Admin: 11/04/17 10:31 Dose: 100 mg Metformin HCl (Glucophage) 1,000 mg PO BID [facility] Last Admin: 11/04/17 17:18 Dose: 1,000 mg Metoprolol Succinate (Toprol Xl) 100 mg PO DAILY [facility] Last Admin: 11/04/17 10:30 Dose: 100 mg Potassium Chloride (K-Dur 20 Meq Er Tab) 20 meq PO DAILY [facility] Last Admin: 11/04/17 10:30 Dose: 20 meq Rosuvastatin Calcium (Crestor) 20 mg PO HS [facility] Last Admin: 11/04/17 21:02 Dose: 20 mg - Labs Labs: 11/03/17 07:16 11/03/17 07:16 PT 12.4 SECONDS (9.7-12.2) H 11/03/17 07:16 INR 1.1 11/03/17 07:16 APTT 28 SECONDS (21-34) 11/03/17 07:16 - Constitutional Appears: Non-toxic, No Acute Distress - Head Exam Head Exam: ATRAUMATIC - Eye Exam Eye Exam: EOMI Pupil Exam: NORMAL ACCOMODATION - ENT Exam ENT Exam: Mucous Membranes Moist - Neck Exam Neck Exam: Full ROM - Respiratory Exam Respiratory Exam: Clear to Ausculation Bilateral - Cardiovascular Exam Cardiovascular Exam: +S1, +S2 - Extremities Exam Extremities Exam: Full ROM, Pedal Edema - Neurological Exam Neurological Exam: Alert, Awake, CN II-XII Intact - Psychiatric Exam Psychiatric exam: Normal Affect, Normal Mood - Skin Skin Exam: Dry, Normal Color Assessment and Plan - Assessment and Plan (Free Text) Assessment: CHF exacerbation - On admission CXR showed mild pulm venous congestion, small B/L pleural effusion - ProBNP was 1530 - Pt was started on Lasix 40 mg IVP daily - Cardiology, Dr. Beatty is consulted. F/U recommendations. Patient had cardiac cath performed which showed EF ~25%- 30% and LAD lesion 80% Patient wearing life vest . Instructions explained Medical management Patient will need stenting at a later date. LE swelling and pain -Improved - Likely due to CHF exacerbation - LE dopplers are ordered- Negative for DVT - Ibuprofen 600 mg po q6 prn for pain. Normal BUN and Cr CAD -Will continue home medications plavix and aspirin, metoprolol and cozaar. Hold Plavix -Cardiac cath performed on this admission - single vessel blockage requiring non-emergent stenting. Refer to complete report. HTN -Norvasc -Monitor DM - Continue home medications: Metformin and glipizide - Accuchecks - ISS HLD - Crestor 20 mg po hs Hx of gout - Will continue home medication: Allopurinol Prophylaxis -Lovenox- Hold. -GI Prophylaxis not currently indicated. DC Instructions Patient is stable for discharge home. Patient is to call the office of Dr. Ezra Castro and follow up within one week for post hospital care. He is also to call the office of Dr. Blandon (cardiology) for follow up within one week of discharge. The patient is to wear the cardiac lifevest at all times (except when in the shower) as instructed during his hospital stay. He is to take the following medications: 1. Aspirin 81mg by mouth daily 2. Lasix 40mg one by mouth daily 3. Metoprolol succ 100mg one by mouth daily 4. Valsartan/Hctz 320/12.5mg one by mouth daily 5. Allopurinol 100mg one by mouth daily 6. Norvasc 10mg one by mouth daily 7. Lipitor 40mg one by mouth daily 8. Plavix 75mg one by mouth daily 9. Glipizide ER 10mg one by mouth twice a day 10. Metformin 1000mg one by mouth twice a day Patient was given scripts for one month supply of these meds. Patient is to return to the hospital if his symptoms return. All instructions explained to the patient and he agrees All management and planning per Dr. Castro
[2017-11-05 08:05] VITALS: BP 128/85; PULSE 90; TEMP 98.4
[2017-11-05] MEDS: Aspirin 325 mg EC Tablets PO SCH (10:13)
[2017-11-05] MEDS: Potassium Chloride 20 mEq ER Tab PO SCH (10:15)
[2017-11-05] MEDS: GlipiZIDE 10 mg SR Tab PO SCH (10:15)
[2017-11-05] MEDS: Enoxaparin 40 mg Syringe SC SCH (10:16)
[2017-11-05] MEDS: Metoprolol Succinate 100 mg XL Tab PO SCH (10:18)
--- NOTE | 2017-11-05 12:59 | PCM.HF ---
Heart Failure Core Measure - Heart Failure Ejection Fraction: Less Than 40 % DREW Inhibitor Prescribed: No Contraindication/Reason for not providing: ON arb Beta-Jordan Prescribed: Metoprolol Succinate Angiotensin II Receptor Jordan Prescribed: Yes AnticoagulationTherapy for Atrial Fibrillation/Atrialflutter: No Contraindication/Reason for not providing: no hx of afib Aldosterone Antagonist Prescribed: No Contraindication/Reason for not providing: on hctz/ as per PMD
--- NOTE | 2017-11-07 10:32 | CARDCATH ---
PROCEDURE DATE: 11/03/2017 PROCEDURES: 1. Left heart catheterization. 2. Coronary angiogram. 3. Radiological supervision and radiological interpretation of the left heart catheterization and coronary angiogram. REFERRING PHYSICIAN: Gemma Castro MD. PERFORMING PHYSICIAN: Tito Beatty MD. CLINICAL INDICATIONS: 1. Dyspnea. 2. Chest pain. 3. Chronic systolic congestive heart failure. 4. Hypertension. 5. Hyperlipidemia. PROCEDURE: After informed consent, the patient was prepped and draped in the usual sterile fashion. A 2% lidocaine was given in the right groin for local anesthesia. Using micropuncture technique, a 6-Trinidadian sheath was introduced into the right common femoral artery. A JL4 6-Trinidadian diagnostic catheter engaged into left main coronary artery. Contrast injected and left coronary angiogram was done. Then a JR4 6-Trinidadian diagnostic catheter engaged into the right coronary artery. Contrast injected and right coronary angiogram was done. A 6-Trinidadian pigtail catheter crossed into the left ventricle. LV end-diastolic pressure was measured. Contrast injected and LV angiogram was done. Then the catheter was pulled back across the aortic valve. Gradient across the aortic valve was measured. The patient tolerated the procedure well. FINDINGS: 1. Left main coronary artery is patent. 2. Mid LAD has a focal 60% to 70% stenosis. Diagonal branches are patent. 3. Left circumflex and obtuse marginal branches are patent. 4. Right coronary artery is dominant and patent. 5. LV ejection fraction is approximately 30%. Global hypokinesis. EDP is 25. There is no gradient across the aortic valve. IMPRESSION: 1. Single-vessel coronary artery disease as described above. Recommend fractional flow reserve guided coronary angioplasty. 2. Dilated left ventricle with an ejection fraction of approximately 30%. Tito Beatty MD
== END 2017-11-05 14:18 | disposition home or self-care (01) | DRG 124 ==
LOC: C.ER 13:30 → C.9E 17:25 → C.6T 19:23
PROVIDERS: ADMIT Internal Medicine Pulmonary Disease; ATTEND Internal Medicine Pulmonary Disease
PROC: 4A023N7 Measurement of Cardiac Sampling and Pressure, Left Heart, Percutaneous Approach (ICD-10-PCS; principal; 2017-11-03)
PROC: B211YZZ Fluoroscopy of Multiple Coronary Arteries using Other Contrast (ICD-10-PCS; 2017-11-03)
PROC: B215YZZ Fluoroscopy of Left Heart using Other Contrast (ICD-10-PCS; 2017-11-03)
DX: I11.0 Hypertensive heart disease with heart failure (principal); I42.0 Dilated cardiomyopathy; E11.9 Type 2 diabetes mellitus without complications; I50.23 Acute on chronic systolic (congestive) heart failure; E78.5 Hyperlipidemia, unspecified; I25.10 Atherosclerotic heart disease of native coronary artery without angina pectoris; F17.210 Nicotine dependence, cigarettes, uncomplicated; Z91.19 Patient's noncompliance with other medical treatment and regimen; Z95.5 Presence of coronary angioplasty implant and graft; M10.9 Gout, unspecified; E66.9 Obesity, unspecified; Z68.37 Body mass index [BMI] 37.0-37.9, adult